=== PATIENT | male | born 1950 | race Caucasian/White ===

== ENCOUNTER 2018-03-08 12:41 | Inpatient (IN) | payer MEDICARE ==
[~2018-03-08] VITALS: Ht 177.8 cm; Wt 89.3 kg
[2018-03-08] MEDS ORDERED: OCTREOTIDE 500 MCG in SODIUM CHLORIDE 0.9% 249 ML IV PRN (12:44)
[2018-03-08] MEDS ORDERED: SODIUM CHLORIDE FLUSH 10ML SYR IVF ONE (13:00)
[2018-03-08] MEDS ORDERED: PLEASE ENTER HEIGHT AND WEIGHT MC SCH (13:00)
[2018-03-08] MEDS ORDERED: PANTOPRAZOLE 40 MG IV IVPush ONE (13:00)
[2018-03-08] MEDS ORDERED: OCTREOTIDE 100MCG/ML, 1ML (0.1MG/ML) IV ONE (13:00)
[2018-03-08] MEDS ORDERED: PLEASE ENTER ALLERGIES MC SCH (13:00)
[2018-03-08 13:05] LABS: BASOPHILS # (AUTO) 0.02 x10^3/uL (0-0.1); BASOPHILS % (AUTO) 0 % (0-1); EOSINOPHILS # (AUTO) 0.04 x10^3/uL (0-0.4); EOSINOPHILS % (AUTO) 0 % (1-7); LYMPHOCYTES # (AUTO) 0.85 x10^3/uL (1-3.4); LYMPHOCYTES % (AUTO) 7 % (22-44); MD NO; MEAN CORPUSCULAR HEMOGLOBIN 34.7 pg (27.5-34.5); MEAN CORPUSCULAR HGB CONC 33.3 g/dL (33.2-36.2); MEAN CORPUSCULAR VOLUME 104.2 fL (81-97); MEAN PLATELET VOLUME 8.3 fL (7.4-10.4); MONOCYTES # (AUTO) 0.72 x10^3/uL (0.2-0.8); MONOCYTES % (AUTO) 6 % (2-9); NEUTROPHILS # (AUTO) 11.39 x10^3/uL (1.8-6.8); NEUTROPHILS % (AUTO) 87 % (42-75); PLATELET COUNT 205 x10^3/uL (130-400); RED BLOOD COUNT 2.46 x10^6/uL (4.38-5.82); RED CELL DISTRIBUTION WIDTH 14.9 % (9.4-14.8)
[2018-03-08] MEDS ORDERED: PANTOPRAZOLE 80 MG in SODIUM CHLORIDE 0.9% 50 ML IVPB ONE (13:11)
[2018-03-08 13:15] VITALS: BP 105/74
[2018-03-08 13:15] LABS: INTERNATIONAL NORMALIZED RATIO 1.31 (0.93-1.1); PROTHROMBIN TIME 13.4 Seconds (9.6-11.5)
[2018-03-08 13:16] LABS: ALANINE AMINOTRANSFERASE 30 U/L (12-78); ALBUMIN 2.2 g/dL (3.4-5.0); ANION GAP 17 mmol/L (5-15); CALCIUM 8.3 mg/dL (8.5-10.1); CHLORIDE 107 mmol/L (98-107)
[2018-03-08 13:21] LABS: ALKALINE PHOSPHATASE 66 U/L (45-117); BILIRUBIN,TOTAL 1.8 mg/dL (0.2-1.0); TOTAL PROTEIN 5.8 g/dL (6.4-8.2)
[2018-03-08 13:25] VITALS: BP 95/66
[2018-03-08] MEDS ORDERED: OCTREOTIDE 100MCG/ML, 1ML (0.1MG/ML) ONE (13:35)
[2018-03-08] MEDS ORDERED: PANTOPRAZOLE 80 MG in SODIUM CHLORIDE 0.9% 100 ML IV SCH (14:00)
[2018-03-08] MEDS ORDERED: ETOMIDATE 20 MG/10 ML IVPush ONE (14:30)
[2018-03-08] MEDS ORDERED: SODIUM CHLORIDE 0.9%, 500ML IVBOLUS ONE (14:30)
[2018-03-08] MEDS ORDERED: ROCURONIUM 10 MG/ML,10ML IVPush ONE (14:30)
[2018-03-08] MEDS ORDERED: MIDAZOLAM 1 MG/ML, 2ML IVPush ONE ×2 (14:30→15:00)
[2018-03-08] MEDS ORDERED: PROPOFOL 100 ML IV SCH (14:31)
[2018-03-08 15:07] LABS: % IRON SATURATION 12 % (20-55); IRON LEVEL 31 mcg/dL (65-175); TOTAL IRON BINDING CAPACITY 260 mcg/dL (250-450)
[2018-03-08] MEDS ORDERED: LIDOCAINE-MPF 1%, 5ML ONE (15:24)
[2018-03-08] MEDS ORDERED: LABETALOL 5MG/ML, 20ML IVPush PRN (15:30)
[2018-03-08] MEDS ORDERED: OXYcodone IR 5MG TABLET PO PRN (15:30)
[2018-03-08] MEDS ORDERED: LORazepam 2 MG/ML, 1ML IVPush PRN (15:30)
[2018-03-08] MEDS ORDERED: ONDANSETRON 2MG/ML, 2ML IVPush PRN (15:30)
[2018-03-08] MEDS ORDERED: ONDANSETRON ODT 4 MG PO PRN (15:30)
[2018-03-08] MEDS ORDERED: POLYETHYLENE GLYCOL 17 GM PACKET PO PRN (15:30)
[2018-03-08] MEDS ORDERED: ACETAMINOPHEN 325 MG TABLET PO PRN (15:30)
[2018-03-08] MEDS ORDERED: morphine SULFATE 10 MG/ML, 1ML IVPush PRN (15:30)
[2018-03-08] MEDS ORDERED: DOCUSATE 100 MG CAPSULE PO PRN (15:30)
[2018-03-08] MEDS ORDERED: TAMS0.4C2 PO (15:49)
[2018-03-08] MEDS ORDERED: MIDO2.5T PO (15:49)
[2018-03-08] MEDS ORDERED: SPIR25TA5 PO (15:49)
[2018-03-08] MEDS ORDERED: LEVO25TA4 PO (15:49)
[2018-03-08] MEDS ORDERED: FURO40TA6 PO (15:49)
[2018-03-08] MEDS ORDERED: ASPI-515 PO (15:49)
[2018-03-08] MEDS ORDERED: SIMV20TA3 PO (15:49)
[2018-03-08] MEDS ORDERED: OMEP-110 PO (15:49)
[2018-03-08] MEDS ORDERED: LACT10SO28 PO (15:49)
[2018-03-08] MEDS: PANTOPRAZOLE 80 MG in SODIUM CHLORIDE 0.9% 100 ML IV SCH (16:00)
[2018-03-08] MEDS: OCTREOTIDE 500 MCG in SODIUM CHLORIDE 0.9% 249 ML IV SCH (16:00)
[2018-03-08 16:06] LABS: FREE T4 (FREE THYROXINE) 0.99 ng/dL (0.76-1.46); THYROID STIMULATING HORMONE 7.89 mIU/L (0.358-3.740)
[2018-03-08 16:52] VITALS: BP 112/75
[2018-03-08 17:15] VITALS: BP 112/75
[2018-03-08 17:30] VITALS: BP 106/70
[2018-03-08] MEDS ORDERED: PROPOFOL 100 ML IV PRN ×2 (19:00→19:30)
[2018-03-08] MEDS: CEFTRIAXONE PMX 1GM/50ML 50 ML IV SCH (19:24)
[2018-03-08] MEDS: PHYTONADIONE 10 MG/ML, 1ML SQ SCH (19:25)
[2018-03-08] MEDS: SODIUM CHLORIDE 0.9% 1,000 ML IV SCH (19:25)
[2018-03-08] MEDS ORDERED: BISACODYL 10 MG SUPP PR PRN (19:30)
[2018-03-08] MEDS ORDERED: SENNOSIDES 8.8 MG/5 ML ORAL SOL NG PRN (19:30)
[2018-03-08] MEDS ORDERED: LIDOCAINE-MPF 1%, 2ML ENDO PRN (19:30)
[2018-03-08] MEDS ORDERED: FENTANYL PF 100 MCG/2ML IVPush PRN (19:30)
[2018-03-08] MEDS ORDERED: PHARMACY MAY ADJ FOR RENAL FX MC SCH (19:30)
[2018-03-08] MEDS ORDERED: FAMOTIDINE 20 MG/2 ML IV SCH (19:30)
[2018-03-08] MEDS ORDERED: SENNA/DOCUSATE TABLET NG PRN (19:30)
[2018-03-08 20:14] VITALS: BP 102/70
[2018-03-08] MEDS ORDERED: ALBUTEROL/IPRATROPIUM 2.5MG/0.5MG, 3 ML ONE (20:40)
[2018-03-08] MEDS ORDERED: LACTULOSE 10 GM/15 ML UDC PO SCH (21:00)
[2018-03-09] MEDS: PANTOPRAZOLE 80 MG in SODIUM CHLORIDE 0.9% 100 ML IV SCH ×3 (00:18→17:35)
[2018-03-09] MEDS: OCTREOTIDE 500 MCG in SODIUM CHLORIDE 0.9% 249 ML IV SCH ×3 (00:18→17:35)
[2018-03-09 04:40] LABS: MD YES; MEAN CORPUSCULAR HEMOGLOBIN 34.1 pg (27.5-34.5); MEAN CORPUSCULAR VOLUME 100.5 fL (81-97); MEAN PLATELET VOLUME 8.3 fL (7.4-10.4); PLATELET COUNT 186 x10^3/uL (130-400); RED BLOOD COUNT 2.85 x10^6/uL (4.38-5.82); RED CELL DISTRIBUTION WIDTH 16.8 % (9.4-14.8)
[2018-03-09 04:45] LABS: INTERNATIONAL NORMALIZED RATIO 1.31 (0.93-1.1); PROTHROMBIN TIME 13.4 Seconds (9.6-11.5)
[2018-03-09 04:48] LABS: ALANINE AMINOTRANSFERASE 30 U/L (12-78); ALBUMIN 2.3 g/dL (3.4-5.0); ANION GAP 13 mmol/L (5-15); CALCIUM 8.2 mg/dL (8.5-10.1); CHLORIDE 110 mmol/L (98-107); CREATININE 1.66 mg/dL (0.7-1.3)
[2018-03-09 04:51] LABS: ALKALINE PHOSPHATASE 71 U/L (45-117); BILIRUBIN,TOTAL 2.9 mg/dL (0.2-1.0); TOTAL PROTEIN 5.7 g/dL (6.4-8.2)
[2018-03-09] MEDS: SODIUM CHLORIDE 0.9% 1,000 ML IV SCH (06:17)
[2018-03-09 07:05] LABS: <PLATELET ESTIMATE> ADEQUATE; <PLT MORPHOLOGY> NORMAL PLT MORPH; <RBC MORPHOLOGY> NORMAL; LYMPH#(MANUAL) 0.24 x10^3/uL (1-3.4); LYMPHS% (MANUAL) 2 % (22-44); SEG#(MANUAL) 11.86 x10^3/uL (1.8-6.8); SEGS% (MANUAL) 98 % (42-75)
[2018-03-09] MEDS: SODIUM BICARB 8.4%,50ML SYR. 50 MEQ in SODIUM CHLORIDE 0.45% 1,000 ML IV SCH ×2 (08:21→21:40)
[2018-03-09] MEDS ORDERED: LACTULOSE 10 GM/15 ML UDC PO SCH (09:00)
[2018-03-09] MEDS: LACTULOSE 20 GM/30 ML UDC NG PRN ×2 (09:20→09:21)
[2018-03-09] MEDS: PHYTONADIONE 10 MG/ML, 1ML SQ SCH (09:20)
[2018-03-09] MEDS ORDERED: LIDOCAINE-MPF 1%, 5ML ONE (10:00)
[2018-03-09] MEDS ORDERED: MIDAZOLAM 1 MG/ML, 5ML ONE (10:31)
[2018-03-09] MEDS ORDERED: ROCURONIUM 10MG/ML,5ML ONE (10:31)
[2018-03-09] MEDS ORDERED: ETOMIDATE 20 MG/10 ML ONE (10:31)
[2018-03-09] MEDS ORDERED: PROPOFOL 10 MG/ML, 100ML IV ONE (10:31)
[2018-03-09] MEDS: METRONIDAZOLE PMX 500MG/100ML 100 ML IV SCH ×2 (10:55→16:24)
[2018-03-09] MEDS: LACTULOSE 20 GM/30 ML UDC PO SCH ×3 (10:56→20:39)
[2018-03-09] MEDS: CEFTRIAXONE PMX 1GM/50ML 50 ML IV SCH (16:24)
[2018-03-09] MEDS: TAMSULOSIN 0.4 MG CAP.ER.24H PO SCH (20:37)
[2018-03-09] MEDS: SIMVASTATIN 20 MG TABLET PO SCH (20:37)
[2018-03-10] MEDS: METRONIDAZOLE PMX 500MG/100ML 100 ML IV SCH ×3 (00:20→14:12)
[2018-03-10] MEDS: PANTOPRAZOLE 80 MG in SODIUM CHLORIDE 0.9% 100 ML IV SCH ×3 (01:54→22:59)
[2018-03-10] MEDS: OCTREOTIDE 500 MCG in SODIUM CHLORIDE 0.9% 249 ML IV SCH ×3 (01:55→22:59)
[2018-03-10 04:30] LABS: BASOPHILS # (AUTO) 0.01 x10^3/uL (0-0.1); BASOPHILS % (AUTO) 0 % (0-1); EOSINOPHILS # (AUTO) 0.01 x10^3/uL (0-0.4); EOSINOPHILS % (AUTO) 0 % (1-7); LYMPHOCYTES # (AUTO) 0.86 x10^3/uL (1-3.4); LYMPHOCYTES % (AUTO) 8 % (22-44); MD NO; MEAN CORPUSCULAR HEMOGLOBIN 34.6 pg (27.5-34.5); MEAN CORPUSCULAR HGB CONC 34.1 g/dL (33.2-36.2); MEAN CORPUSCULAR VOLUME 101.4 fL (81-97); MEAN PLATELET VOLUME 8.8 fL (7.4-10.4); MONOCYTES # (AUTO) 0.74 x10^3/uL (0.2-0.8); MONOCYTES % (AUTO) 7 % (2-9); NEUTROPHILS # (AUTO) 9.44 x10^3/uL (1.8-6.8); NEUTROPHILS % (AUTO) 85 % (42-75); PLATELET COUNT 159 x10^3/uL (130-400); RED BLOOD COUNT 2.74 x10^6/uL (4.38-5.82); RED CELL DISTRIBUTION WIDTH 16.7 % (9.4-14.8)
[2018-03-10 04:36] LABS: ANION GAP 11 mmol/L (5-15); CALCIUM 7.7 mg/dL (8.5-10.1); CHLORIDE 112 mmol/L (98-107); CREATININE 1.59 mg/dL (0.7-1.3)
[2018-03-10] MEDS: LACTULOSE 20 GM/30 ML UDC PO SCH ×4 (05:10→21:50)
[2018-03-10] MEDS: SODIUM BICARB 8.4%,50ML SYR. 50 MEQ in SODIUM CHLORIDE 0.45% 1,000 ML IV SCH (06:27)
[2018-03-10] MEDS ORDERED: INSULIN LISPRO 100 UNITS/ML, PEN SQ-INSULIN SCH (07:30)
[2018-03-10] MEDS: INSULIN GLARGINE 100 UNITS/ML, PEN SQ-INSULIN SCH ×2 (08:38→20:30)
[2018-03-10] MEDS: SODIUM CHLORIDE 0.45% 1,000 ML IV SCH ×2 (08:38→21:50)
[2018-03-10] MEDS: PHYTONADIONE 10 MG/ML, 1ML SQ SCH (08:39)
[2018-03-10] MEDS: INSULIN LISPRO 100 UNITS/ML, PEN SQ-INSULIN SCH ×2 (14:11→20:29)
[2018-03-10] MEDS: CEFTRIAXONE PMX 1GM/50ML 50 ML IV SCH (16:27)
[2018-03-10] MEDS: SIMVASTATIN 20 MG TABLET PO SCH (20:30)
[2018-03-10] MEDS: TAMSULOSIN 0.4 MG CAP.ER.24H PO SCH (20:30)
[2018-03-11] MEDS: METRONIDAZOLE PMX 500MG/100ML 100 ML IV SCH ×3 (00:31→16:00)
[2018-03-11] MEDS: INSULIN LISPRO 100 UNITS/ML, PEN SQ-INSULIN SCH ×4 (02:34→22:54)
[2018-03-11 04:32] LABS: BASOPHILS # (AUTO) 0.02 x10^3/uL (0-0.1); BASOPHILS % (AUTO) 0 % (0-1); EOSINOPHILS % (AUTO) 1 % (1-7); LYMPHOCYTES # (AUTO) 1.09 x10^3/uL (1-3.4); LYMPHOCYTES % (AUTO) 10 % (22-44); MD NO; MEAN CORPUSCULAR HEMOGLOBIN 34.3 pg (27.5-34.5); MEAN CORPUSCULAR HGB CONC 33.7 g/dL (33.2-36.2); MEAN CORPUSCULAR VOLUME 101.8 fL (81-97); MEAN PLATELET VOLUME 8.5 fL (7.4-10.4); MONOCYTES # (AUTO) 0.79 x10^3/uL (0.2-0.8); MONOCYTES % (AUTO) 7 % (2-9); NEUTROPHILS # (AUTO) 8.93 x10^3/uL (1.8-6.8); NEUTROPHILS % (AUTO) 82 % (42-75); PLATELET COUNT 146 x10^3/uL (130-400); RED BLOOD COUNT 2.72 x10^6/uL (4.38-5.82)
[2018-03-11 04:40] LABS: ALANINE AMINOTRANSFERASE 27 U/L (12-78); ALBUMIN 2.3 g/dL (3.4-5.0); ANION GAP 15 mmol/L (5-15); CALCIUM 8.3 mg/dL (8.5-10.1); CHLORIDE 115 mmol/L (98-107); CREATININE 1.64 mg/dL (0.7-1.3)
[2018-03-11 04:43] LABS: ALKALINE PHOSPHATASE 69 U/L (45-117); BILIRUBIN,TOTAL 2.4 mg/dL (0.2-1.0); TOTAL PROTEIN 5.9 g/dL (6.4-8.2); TRIGLYCERIDES 74 mg/dL (50-200)
[2018-03-11] MEDS: LACTULOSE 20 GM/30 ML UDC PO SCH ×4 (04:44→22:00)
[2018-03-11 04:55] LABS: BILIRUBIN,INDIRECT 1.4 mg/dL (0.0-2.0)
[2018-03-11] MEDS: PANTOPRAZOLE 80 MG in SODIUM CHLORIDE 0.9% 100 ML IV SCH ×2 (08:25→22:12)
[2018-03-11] MEDS: OCTREOTIDE 500 MCG in SODIUM CHLORIDE 0.9% 249 ML IV SCH ×2 (08:26→22:25)
[2018-03-11] MEDS: INSULIN GLARGINE 100 UNITS/ML, PEN SQ-INSULIN SCH ×2 (09:16→21:00)
[2018-03-11] MEDS: SODIUM CHLORIDE 0.45% 1,000 ML IV SCH (11:25)
[2018-03-11] MEDS ORDERED: FILTER 0.22 MICRON IV ONE (15:30)
[2018-03-11] MEDS ORDERED: LORazepam 2 MG/ML, 1ML IVPush ONE (15:30)
[2018-03-11] MEDS ORDERED: PHENYTOIN SODIUM 1,000 MG in SODIUM CHLORIDE 0.9% 100 ML IV ONE (15:30)
[2018-03-11] MEDS: CEFTRIAXONE PMX 1GM/50ML 50 ML IV SCH (16:00)
[2018-03-11] MEDS ORDERED: MORPHINE SULFATE 4 MG/ML, 1ML IVPush PRN (17:30)
[2018-03-11] MEDS: TAMSULOSIN 0.4 MG CAP.ER.24H PO SCH (21:00)
[2018-03-11] MEDS: SIMVASTATIN 20 MG TABLET PO SCH (21:00)
[2018-03-12] MEDS: SODIUM CHLORIDE 0.45% 1,000 ML IV SCH (03:02)
[2018-03-12 03:50] LABS: BASOPHILS # (AUTO) 0.04 x10^3/uL (0-0.1); BASOPHILS % (AUTO) 0 % (0-1); EOSINOPHILS # (AUTO) 0.06 x10^3/uL (0-0.4); EOSINOPHILS % (AUTO) 1 % (1-7); LYMPHOCYTES # (AUTO) 0.93 x10^3/uL (1-3.4); LYMPHOCYTES % (AUTO) 8 % (22-44); MD NO; MEAN CORPUSCULAR VOLUME 102.7 fL (81-97); MEAN PLATELET VOLUME 8.3 fL (7.4-10.4); MONOCYTES # (AUTO) 0.85 x10^3/uL (0.2-0.8); MONOCYTES % (AUTO) 7 % (2-9); NEUTROPHILS # (AUTO) 10.11 x10^3/uL (1.8-6.8); NEUTROPHILS % (AUTO) 84 % (42-75); PLATELET COUNT 132 x10^3/uL (130-400); RED BLOOD COUNT 2.81 x10^6/uL (4.38-5.82); RED CELL DISTRIBUTION WIDTH 17.6 % (9.4-14.8)
[2018-03-12 03:59] LABS: ANION GAP 12 mmol/L (5-15); CALCIUM 8.1 mg/dL (8.5-10.1); CHLORIDE 115 mmol/L (98-107); CREATININE 1.49 mg/dL (0.7-1.3)
[2018-03-12] MEDS: LACTULOSE 20 GM/30 ML UDC PO SCH ×2 (04:00→10:00)
[2018-03-12] MEDS: INSULIN LISPRO 100 UNITS/ML, PEN SQ-INSULIN SCH ×2 (05:00→11:00)
[2018-03-12] MEDS: METRONIDAZOLE PMX 500MG/100ML 100 ML IV SCH ×2 (07:20)
[2018-03-12] MEDS: INSULIN GLARGINE 100 UNITS/ML, PEN SQ-INSULIN SCH (09:00)
[2018-03-12] MEDS: PANTOPRAZOLE 80 MG in SODIUM CHLORIDE 0.9% 100 ML IV SCH (09:05)
[2018-03-12] MEDS: OCTREOTIDE 500 MCG in SODIUM CHLORIDE 0.9% 249 ML IV SCH (09:05)
[2018-03-12] MEDS: LORazepam 2 MG/ML, 1ML IVPush PRN ×2 (09:45→14:33)
[2018-03-12] MEDS ORDERED: ATROPINE OPHTH SOLN 1%, 2ML PO PRN (13:00)
[2018-03-12] MEDS ORDERED: LORazepam 2 MG/ML, 1ML IV ONE (13:00)
[2018-03-12] MEDS ORDERED: morphine SULFATE 10 MG/ML, 1ML IV ONE (13:00)
[2018-03-12] MEDS: LORazepam 2 MG/ML, 1ML IV PRN ×2 (13:22→18:35)
[2018-03-12] MEDS ORDERED: ATROPINE SYRINGE 0.1 MG/ML, 10ML ONE (13:34)
[2018-03-13] MEDS: LORazepam 2 MG/ML, 1ML IV PRN ×3 (17:27→20:20)
== END 2018-03-14 00:50 | disposition expired | DRG 326 ==
LOC: ED 13:55 → EDIP 13:56 → ED 14:22 → CCU 15:37 → 3NW 03-12 17:56
PROVIDERS: ADMIT Internal Medicine; ATTEND Internal Medicine
PROC: 0BH17EZ Insertion of Endotracheal Airway into Trachea, Via Natural or Artificial Opening (ICD-10-PCS; 2018-03-08)
PROC: 5A1955Z Respiratory Ventilation, Greater than 96 Consecutive Hours (ICD-10-PCS; 2018-03-08)
PROC: 0D9 Gastrointestinal System, Drainage (ICD-10-PCS; 2018-03-08)
PROC: 0D958ZZ Drainage of Esophagus, Via Natural or Artificial Opening Endoscopic (ICD-10-PCS; principal; 2018-03-09)
PROC: 0W9G3ZZ Drainage of Peritoneal Cavity, Percutaneous Approach (ICD-10-PCS; 2018-03-09)
PROC: 30233N1 Transfusion of Nonautologous Red Blood Cells into Peripheral Vein, Percutaneous Approach (ICD-10-PCS; 2018-03-14)
DX: K92.2 Gastrointestinal hemorrhage, unspecified (principal); J96.00 Acute respiratory failure, unspecified whether with hypoxia or hypercapnia; G93.41 Metabolic encephalopathy; N17.0 Acute kidney failure with tubular necrosis; E43 Unspecified severe protein-calorie malnutrition; J18.1 Lobar pneumonia, unspecified organism; K76.6 Portal hypertension; Z99.11 Dependence on respirator [ventilator] status; D62 Acute posthemorrhagic anemia; D68.59 Other primary thrombophilia; J90 Pleural effusion, not elsewhere classified; J98.11 Atelectasis; R57.8 Other shock; K92.1 Melena; K72.90 Hepatic failure, unspecified without coma; K70.31 Alcoholic cirrhosis of liver with ascites; K31.89 Other diseases of stomach and duodenum; Z68.28 Body mass index [BMI] 28.0-28.9, adult; D53.9 Nutritional anemia, unspecified; E03.9 Hypothyroidism, unspecified; E11.65 Type 2 diabetes mellitus with hyperglycemia; E21.3 Hyperparathyroidism, unspecified; E55.9 Vitamin D deficiency, unspecified; F10.21 Alcohol dependence, in remission; G62.9 Polyneuropathy, unspecified; M19.90 Unspecified osteoarthritis, unspecified site; N40.0 Benign prostatic hyperplasia without lower urinary tract symptoms; R56.9 Unspecified convulsions; Z51.5 Encounter for palliative care
CPT/HCPCS: 31500; 36415; 36600; 49083; 51702; 70450; 71045; 80048; 80053; 82140; 82247; 82248; 82306; 82607; 82728; 82803; 82962; 83540; 83550; 83690; 83735; 83880; 83970; 84100; 84439; 84443; 84478; 85018; 85025; 85610; 86850; 86900; 86923; 87070; 87081; 87205; 88112; 88305; 93005; 94002; 94003; 99291; G0378; J0696; J2250; J2354; J2704; J3430; J7060; C9113; J1815; J2060; J2270; J7030; J7040; J7050; P9016; S0028